=== PATIENT | male | born 1995 | race Two or more races ===

== ENCOUNTER 2017-04-02 21:58 | Emergency (ER) | payer SELFPAY ==
[2017-04-02 22:07] VITALS: O2SAT 95
--- NOTE | 2017-04-02 23:02 | EDPHY ---
H & P Stated Complaint: RUQ abdominal pain Time Seen by Provider: 04/02/17 23:00 HPI/ROS: CHIEF COMPLAINT: Abdominal pain HISTORY OF PRESENT ILLNESS: 21-year-old male presents emergency department complaining of intermittent epigastric and right upper quadrant abdominal pain for the past 3 days. Patient reports no nausea or vomiting, no fevers or chills. The pain is burning in nature, patient reports eating does not exacerbate this pain, there is nothing he can do to make it better or worse. Patient reports he drink alcohol the night before his abdominal pain began. States he drinks once or twice per month. He denies diarrhea, no blood in his stool. REVIEW OF SYSTEMS: A comprehensive 10 point review of systems is otherwise negative aside from elements mentioned in the history of present illness. Source: Patient Exam Limitations: No limitations - Personal History Current Tetanus/Diphtheria Vaccine: Yes - Medical/Surgical History Hx Asthma: No Hx Chronic Respiratory Disease: No Hx Diabetes: No Hx Cardiac Disease: No Hx Renal Disease: No Hx Cirrhosis: No Hx Alcoholism: No Hx HIV/AIDS: No Hx Splenectomy or Spleen Trauma: No Other PMH: PSHx: denies. PMHx: denies - Social History Smoking Status: Current every day smoker - Physical Exam Exam: Physical Exam Gen: Alert and Oriented, NAD HEENT: PERRL, moist mucous membranes NECK: no meningismus CV: regular rate and regular rhythm PULM: CTAB, no wheezes ABDOMEN: soft, mild epigastric tenderness to palpation, BS present BACK: No CVA tenderness NEURO: Neurologically grossly intact EXTREMITIES: normal appearing SKIN: no rash or break in skin on exposed skin PSYCH: answers questions appropriately. Constitutional: Initial Vital Signs Temperature (C) 36.7 C 04/02/17 22:04 Heart Rate 86 04/02/17 22:04 Respiratory Rate 14 04/02/17 22:04 Blood Pressure 130/52 H 04/02/17 22:04 O2 Sat (%) 95 04/02/17 22:04 O2 Delivery Mode Room Air Allergies/Adverse Reactions: No Known Allergies Allergy (Unverified 04/02/17 22:04) Home Medications: Medication Instructions Recorded Ranitidine HCl [Zantac] 150 mg PO DAILY #20 tablet 04/02/17 Medical Decision Making ED Course/Re-evaluation: 21-year-old male presents with a 3 day history of intermittent epigastric burning pain. Patient is given a GI cocktail which improved his symptoms. He has normal vital signs and has no evidence of cholecystitis or pancreatitis with mild epigastric tenderness to palpation. Patient is given a prescription for Zantac. I have encouraged alcohol cessation. He will return to the emergency department for worsening symptoms, new symptoms or concerns. Differential Diagnosis: Epigastric pain including but not limited to biliary colic, cholecystitis, peptic ulcer disease, pancreatitis, and gastroenteritis. - Data Points Medications Given: Discontinued Medications Al Hydroxide/Mg Hydroxide (Maalox Susp) 30 ml PO ONCE ONE Stop: 04/02/17 23:07 Last Admin: 04/02/17 23:30 Dose: 30 ml Hyoscyamine Sulfate (Levsin, Hyomax-Sl) 0.25 mg PO ONCE ONE Stop: 04/02/17 23:07 Last Admin: 04/02/17 23:42 Dose: 0.25 mg Lidocaine (Lidocaine 2% Viscous) 15 ml PO ONCE ONE Stop: 04/02/17 23:07 Last Admin: 04/02/17 23:30 Dose: 15 ml Departure - Departure Disposition: Home, Routine, Self-Care Clinical Impression: Epigastric pain Condition: Good Instructions: Diet for Stomach Ulcers and Gastritis (ED), Gastroesophageal Reflux Disease (ED), Epigastric Pain (ED) Additional Instructions: Take 150 mg of Zantac daily for 7 days. Avoid alcohol, spicy, greasy foods. Return to the emergency department for any worsening symptoms, new symptoms or concerns, follow up with the primary care doctor for symptoms that are not improving in the next 7-10 days. Referrals: [facility],. [Clinic] - As per Instructions Prescriptions: Ranitidine HCl [Zantac] 150 mg PO DAILY #20 tablet Print Language: South African
[2017-04-02] MEDS ORDERED: MAG HYDROX/AL HYDROX/SIMETH 30 ML UDCUP PO ONE (23:06)
[2017-04-02] MEDS ORDERED: HYOSCYAMINE SULFATE 0.125 MG TAB PO ONE (23:06)
[2017-04-02] MEDS ORDERED: LIDOCAINE 2% VISCOUS 15 ML UDCUP PO ONE (23:06)
[2017-04-02] MEDS ORDERED: RANITIDINE SYRUP 15 MG/1 ML UDSYR PO ONE (23:45)
[2017-04-03 00:10] VITALS: BP 122/68; PULSE 60; RESP 18; TEMP 97.7
== END 2017-04-03 00:11 | disposition home or self-care (01) ==
DX: R10.13 Epigastric pain (principal); F17.200 Nicotine dependence, unspecified, uncomplicated

== ENCOUNTER 2018-12-02 10:16 | Inpatient (IN) | payer SELFPAY ==
[2018-12-02 10:36] LABS: PLATELET COUNT 274 10^3/uL (150-400)
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
[2018-12-02 10:49] LABS: INR 1.08 (0.83-1.16); PROTIME(PATIENT) 14.2 SEC (12.0-15.0)
[2018-12-02] MEDS ORDERED: fentaNYL 100 MCG/2 ML INJ ONE ×4 (11:21→12:35)
[2018-12-02] MEDS ORDERED: fentaNYL 100 MCG/2 ML INJ IVP ONE ×3 (11:25→11:35)
[2018-12-02] MEDS ORDERED: HYDROmorphONE/DILAUDID 1 MG/ML INJ ONE (12:37)
[2018-12-02] MEDS ORDERED: HYDROmorphONE/DILAUDID 2 MG/ML INJ IVP ONE (12:40)
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
[2018-12-02] MEDS: HYDROCODONE/APAP 5/325 TAB PO PRN ×2 (16:23→20:20)
[2018-12-03] MEDS: oxyCODONE IR 5 MG TAB PO PRN ×3 (04:25→19:33)
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
[2018-12-03] MEDS ORDERED: MAGNESIUM HYDROXIDE 30 ML UDCUP PO PRN (14:04)
[2018-12-03] MEDS ORDERED: POLYETHYLENE GLYCOL 3350 17 GM PKT PO PRN (14:04)
[2018-12-03] MEDS ORDERED: LACTULOSE 20 GM/30 ML UDCUP PO PRN (14:04)
[2018-12-03] MEDS ORDERED: BISACODYL 10 MG SUPP PR PRN (14:04)
[2018-12-03] MEDS: SENNOSIDES/DOCUSATE SODIUM TAB PO SCH (21:14)
[2018-12-04] MEDS: oxyCODONE IR 5 MG TAB PO PRN ×2 (03:34→08:15)
[2018-12-04 06:05] LABS: PLATELET COUNT 177 10^3/uL (150-400)
[2018-12-04] MEDS: SENNOSIDES/DOCUSATE SODIUM TAB PO SCH (08:11)
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
--- NOTE | 2018-12-04 10:25 | ASMTCMCOM ---
CM Note CM Note Notes: CM reviewed pts chart. Therapies have cleared pt to d/c without any needs. CM available for changes. Plan: Independent w/ family support Date Signed: 12/04/2018 10:24 AM Electronically Signed By:ROSINA Manuel
[2018-12-04 15:25] VITALS: BP 111/62
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
--- NOTE | 2018-12-04 16:21 | ASMTLACE ---
SCARLETTE Length of stay for Answers: 2 days current admission Acuity / Level of Answers: Yes Care: Did the patient have an inpatient admission? # of Emergency department Answers: 1-2 visits in the last 6 months Score: 6 Date Signed: 12/04/2018 04:20 PM Electronically Signed By:ROSINA Manuel
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
== END 2018-12-04 17:28 | disposition home or self-care (01) | DRG 199 ==
LOC: EDBD → EDUNIT# → EEVIPCON 11:05 → F3E 13:09
PROVIDERS: ADMIT Surgery; ATTEND Surgery
PROC: 0W9B30Z Drainage of Left Pleural Cavity with Drainage Device, Percutaneous Approach (ICD-10-PCS; principal; 2018-12-02)
DX: S27.2XXA Traumatic hemopneumothorax, initial encounter (principal); S21.432A Puncture wound without foreign body of left back wall of thorax with penetration into thoracic cavity, initial encounter; X99.9XXA Assault by unspecified sharp object, initial encounter; Y92.511 Restaurant or cafe as the place of occurrence of the external cause; Z72.0 Tobacco use
CPT/HCPCS: 82435-PO; 82565-PO; 82947-PO; 84132-PO; 84295-PO; 84520-PO; 85014-ER; 96374; 97116-GP; 97162-GP; 97166-GO; J0690; J1170; J2270; J3010

== ENCOUNTER → 2018-12-05 | Outpatient (CLI) | payer SELFPAY | LOC: FIMAGING 16:50 | PROVIDERS: ATTEND Surgery | DX: J98.11 Atelectasis (principal) ==

== ENCOUNTER 2018-12-11 09:55 | Emergency (ER) | payer SELFPAY ==
[2018-12-11 10:27] VITALS: BP 115/60
--- NOTE | 2018-12-11 10:43 | EDPHY ---
JAGJIT Addendum - Addendum .: 10:42 a.m.: As I was walking down the [place] to evaluate the patient for the 1st time he walked out of the ER. He appeared comfortable, ambulating comfortably but would not disclose why he was leaving without being seen. His sutures were not removed and I did not examine the patient.
== END 2018-12-11 10:44 | disposition left against medical advice (07) ==
LOC: EEVIPCON 09:55
DX: Z48.02 Encounter for removal of sutures (principal)

== ENCOUNTER 2018-12-11 20:20 | Emergency (ER) | payer SELFPAY ==
[2018-12-11 20:28] VITALS: BP 107/68
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
== END 2018-12-11 21:36 | disposition home or self-care (01) ==
DX: Z48.02 Encounter for removal of sutures (principal)